=== PATIENT | female | born 1960 | race African-American/Black ===

== ENCOUNTER 2018-04-24 19:27 | Emergency (ER) | payer OTHER ==
[2018-04-24] MEDS ORDERED: Diltiazem 125 MG/25 ML ONE (20:08)
[2018-04-24 20:11] LABS: Mean Corpuscular HGB CONC 34.1 g/dL (32.0-36.0); Mean Corpuscular Hemoglobin 26.4 pg (27.0-31.0); Mean Corpuscular Volume 77.5 fL (78.0-98.0); Platelet Count 288 thou/uL (130-400); RBC Distribution Width 12.8 % (11.5-14.5); Red Blood Cell (RBC) Count 4.93 mill/uL (4.20-5.40); White Blood Cell (WBC) Count 9.6 thou/uL (4.8-10.8)
[2018-04-24 20:15] LABS: CKMB 1.3 ng/mL (0-6.6); Lymphocytes 44 % (21-51); MDiff Complete? YES; Monocytes 1 % (0-10); Neutrophil 43 % (42-75); PLT Morphology Comment Appears Adequate; RBC Morphology Normal; Reactive Lymphocytes 12 % (0-10); Troponin I Less than 0.010 ng/mL (< 0.028)
[2018-04-24 20:16] LABS: ALT (SGPT) 21 U/L (8-55); AST (SGOT) 19 U/L (5-34); Alkaline Phosphatase 102 U/L (40-150); Anion Gap 13 mmol/L (10-20); BUN (Urea Nitrogen) 21 mg/dL (9.8-20.1); Bilirubin, Total 0.5 mg/dL (0.2-1.2); CK (CPK) 127 U/L (29-168); Calc. Creatinine Clearance 0 mL/min (70-130); Calcium 9.8 mg/dL (7.8-10.44); Carbon Dioxide 24 mmol/L (22-29); Chloride 109 mmol/L (98-107); Estimated GFR-MDRD 68; Globulin 3.7 g/dL (2.4-3.5); Glucose 132 mg/dL (70-105); Magnesium 2.2 mg/dL (1.6-2.6); Potassium 3.5 mmol/L (3.5-5.1); Protein, Total 7.7 g/dL (6.0-8.3); Sodium 142 mmol/L (136-145)
[2018-04-24] MEDS ORDERED: Enoxaparin Sodium 100 MG/ML SYRINGE ONE (20:18)
--- NOTE | 2018-04-24 20:44 | RAD ---
PORTABLE CHEST 04/24/18 An AP portable film at 1921 is compared with a 06/06/10 study. The heart is normal in size. There are no congestive changes or pleural effusions. The lungs are betsey r. The trachea is midline. IMPRESSION: Stable exam showing no acute findings. POS: HOME
[2018-04-24] MEDS ORDERED: Ondansetron PF 4 MG/2 ML Vial ONE (20:48)
== END 2018-04-24 22:30 | disposition short-term general hospital (02) ==
LOC: BURERS 19:27
DX: I48.91 Unspecified atrial fibrillation (principal); Z79.899 Other long term (current) drug therapy
CPT/HCPCS: 36415; 71045; 80053; 82550; 82553; 83735; 84443; 84484; 85025; 93005; 96365; 96366; 96372; 96375; 96376; J1650; J2405

== ENCOUNTER 2019-03-24 15:29 | Emergency (ER) | payer OTHER ==
[2019-03-24 16:21] LABS: #Lymphocytes 2.6 thou/uL (1.20-3.40); #Monocytes 0.7 thou/uL (0.11-0.59); #Neutrophils 3.8 thou/uL (1.40-6.50); %Basophils 0.6 % (0.0-1.0); %Eosinophils 0.5 % (0.0-10.0); %Lymphocytes 35.7 % (21.0-51.0); %Neutrophils 53.2 % (42.0-75.0); Hemoglobin 12.9 g/dL (12.0-16.0); Mean Corpuscular Hemoglobin 26.4 pg (27.0-31.0); Mean Corpuscular Volume 82.5 fL (78.0-98.0); Mean Platelet Volume 8.4 fL (7.4-10.4); Platelet Count 248 thou/uL (130-400); RBC Distribution Width 13.4 % (11.5-14.5); Red Blood Cell (RBC) Count 4.88 mill/uL (4.20-5.40); White Blood Cell (WBC) Count 7.2 thou/uL (4.8-10.8)
[2019-03-24] MEDS ORDERED: Metoprolol Tartrate 25 MG TAB PO SCH (16:30)
[2019-03-24 16:42] LABS: ALT (SGPT) 13 U/L (8-55); AST (SGOT) 17 U/L (5-34); Albumin 3.8 g/dL (3.5-5.0); Alkaline Phosphatase 98 U/L (40-110); Anion Gap 13 mmol/L (10-20); BUN (Urea Nitrogen) 24 mg/dL (9.8-20.1); Bilirubin, Total 0.4 mg/dL (0.2-1.2); Calc. Creatinine Clearance 0 mL/min (70-130); Calcium 9.6 mg/dL (7.8-10.44); Carbon Dioxide 23 mmol/L (22-29); Chloride 111 mmol/L (98-107); Estimated GFR-MDRD 55; Globulin 3.3 g/dL (2.4-3.5); Glucose 98 mg/dL (70-105); Potassium 4.1 mmol/L (3.5-5.1); Protein, Total 7.1 g/dL (6.0-8.3); Sodium 143 mmol/L (136-145)
[2019-03-24] MEDS ORDERED: Enoxaparin Sodium 100 MG/ML SYRINGE ONE (17:17)
--- NOTE | 2019-03-24 22:50 | RAD ---
PORTABLE CHEST: Date: 03-24-19 FINDINGS: An AP portable film at 1613 is compared with an 04-24-18 study. The heart is close to normal in size for AP film. Vasculature seems marginally more prominent today t mcguire before. No lobar infiltrate or large effusion was seen. The bony structures were unremarkable. IMPRESSION: Very slight vascular prominence which may or may not be significant. POS: HOME
== END 2019-03-24 17:45 | disposition home or self-care (01) ==
LOC: BURERS 15:29
DX: I48.91 Unspecified atrial fibrillation (principal)
CPT/HCPCS: 36415; 71045; 80053; 83880; 84484; 85025; 93005; 96372; J1650

== ENCOUNTER → 2020-06-11 | Emergency (ER) | payer BC, OTHER ==
[~2020-06-11] MED LIST: Enoxaparin Sodium 100 MG/ML SYRINGE ONE
== END ==
LOC: BURERS 17:40
DX: M79.662 Pain in left lower leg (principal); I48.91 Unspecified atrial fibrillation
CPT/HCPCS: 36415; 85379; 96372; 99284; J1650